=== PATIENT | female | born 1975 | race Caucasian/White ===

== ENCOUNTER 2017-06-19 15:58 | Emergency (ER) | payer OTHER ==
[~2017-06-19] VITALS: Ht 165.1 cm; Wt 79.8 kg
[~2017-06-19 15:58] MED LIST: ACETAMINOPHEN-H1 TA2 PO; ASPIRIN325 MG PO; BIRTH CONTROL1 EAC1 PO; CEPHALEXIN500 M1 PO; CIPROFLOXACIN500 M4 PO; CYMBALTA60 MG R; FIORICET 325 MG1 TAB PO; Motrin,Rufen800 MG PO; PRAVACHOL20 MG PO; PREDNISONE50 MG PO; TRAZODONE50 MG PO; VITAMINS FOR HA1 CAP PO
[2017-06-19] MEDS ORDERED: SEPTDS PO (16:19)
== END 2017-06-19 16:31 | disposition home or self-care (01) ==
LOC: ED 15:58
DX: L02.413 Cutaneous abscess of right upper limb (principal); Z90.89 Acquired absence of other organs; Z79.899 Other long term (current) drug therapy; Z79.82 Long term (current) use of aspirin; Z88.0 Allergy status to penicillin; Z88.1 Allergy status to other antibiotic agents

== ENCOUNTER 2017-08-08 07:14 | Emergency (ER) | payer OTHER ==
[~2017-08-08] VITALS: Ht 165.1 cm; Wt 83.9 kg
[~2017-08-08 07:14] MED LIST changes: +SEPTDS PO
[2017-08-08 07:57] LABS: BASO % 0.4 % (0.0-1.0); EOS # 0.3 10*3/uL (0.0-0.4); EOS % 4.4 % (1.0-4.0); HEMATOCRIT 43.7 % (37.0-47.0); HEMOGLOBIN 14.8 g/dl (12.0-16.0); LYMPH # 2.1 10*3/uL (1.3-4.4); LYMPH % 26.7 % (27.0-41.0); MEAN CELL VOLUME 89.9 fl (81.0-99.0); MEAN CORPUSCULAR HGB 30.5 pg (27.0-31.0); MEAN CORPUSCULAR HGB CONC 33.9 g/dl (33.0-37.0); MEAN PLATELET VOLUME 8.8 fl (9.6-12.3); MONO # 0.6 10*3/uL (0.1-1.0); MONO % 7.4 % (3.0-9.0); NEUT # 4.7 10*3/uL (2.3-7.9); NEUT % 60.7 % (47.0-73.0); PLATELET COUNT AUTOMATED 280 10*3/uL (130-400); RED BLOOD COUNT 4.86 10*6/uL (4.10-5.10); RED CELL DISTRI WIDTH 12.8 % (0-14.5); WHITE BLOOD COUNT 7.7 10*3/uL (4.8-10.8)
[2017-08-08 08:28] LABS: ALBUMIN 3.8 gm/dl (3.1-4.5); ALKALINE PHOSPHATASE 73 U/L (45-117); BUN 10 mg/dl (7-24); CHLORIDE 107 mmol/L (98-107); CREATININE 0.84 mg/dL (0.55-1.02); POTASSIUM 4.3 mmol/L (3.5-5.1); SGOT/AST 14 IU/L (3-35); SGPT/ALT 23 U/L (12-78); SODIUM 141 mmol/L (136-145); TOTAL PROTEIN 6.7 gm/dL (6.4-8.2)
== END 2017-08-08 10:09 | disposition home or self-care (01) ==
LOC: ED 07:14
PROVIDERS: Internal Medicine
DX: B34.9 Viral infection, unspecified (principal); F32.9 Major depressive disorder, single episode, unspecified; N80.9 Endometriosis, unspecified; G47.00 Insomnia, unspecified; G43.909 Migraine, unspecified, not intractable, without status migrainosus; E44.0 Moderate protein-calorie malnutrition; M79.605 Pain in left leg; M79.604 Pain in right leg; G89.29 Other chronic pain; F17.200 Nicotine dependence, unspecified, uncomplicated; F10.10 Alcohol abuse, uncomplicated; Z90.89 Acquired absence of other organs; Z88.0 Allergy status to penicillin; Z88.1 Allergy status to other antibiotic agents; Z79.82 Long term (current) use of aspirin; Z79.899 Other long term (current) drug therapy

== ENCOUNTER 2017-12-05 08:21 | Inpatient (IN) | payer OTHER ==
[~2017-12-05] VITALS: Ht 165.1 cm; Wt 85.8 kg
[2017-12-05] VITALS (9 sets, daily range): BP systolic 100–202; BP diastolic 60–85
--- NOTE | ~2017-12-05 | WRIGHTHP ---
[place], [place] PATIENT HISTORY AND PHYSICAL EXAM NAME: DANIELLE RINALDI LOCATED WITHIN [facility] #: [id number] UNIT #: [id number] ROOM: 422 DOCTOR: CHIQUITA GREENBERG MD BIRTHDATE: [birth year] DOS: 12/05/2017 HISTORY OF PRESENT ILLNESS: The patient is a 42-year-old female with a past medical history of: 1. Generalized anxiety disorder. 2. Major depression, recurrent, moderate. 3. Possible pancreatitis in the past. 4. History of endometriosis. 5. History of right occipital ischemic infarct in 2009. 6. Insomnia. 7. History of tonsillectomy and adenoidectomy. The patient presented to the emergency department at [facility] with complaints of epigastric abdominal pains and some nausea without vomiting for about 10 days. The pains were off and on and also she felt some pain in the back and they were getting worse over a period of time. The patient says the pain feel better after eating. She has had no vomiting, no diarrhea or constipation. No fever or chills. REVIEW OF SYSTEMS: LUNGS: No increasing shortness of breath or wheezing. GASTROINTESTINAL: The patient with nausea and abdominal pains. CARDIOVASCULAR: No chest pains or palpitations. FAMILY HISTORY: Noncontributory. SOCIAL HISTORY: Denies smoking cigarettes, alcohol and drug abuse. FAMILY HISTORY: Noncontributory. MEDICATIONS: Levothyroxine, Cymbalta, simvastatin, trazodone. PHYSICAL EXAMINATION: GENERAL: Alert, oriented times 3, in no visible distress. HEENT AND NECK: Extraocular movements are intact. Sclerae are anicteric. Oral mucosa is moist and clean. No obvious facial weakness. Neck is supple without any lymphadenopathy. No thyromegaly. No JVD. No carotid arterial bruits. LUNGS: Clear to auscultation. No wheezing. No rhonchi. CARDIOVASCULAR SYSTEM: Heart rate is regular in rate and rhythm. S1 and S2 normally audible. No significant murmur or any other abnormal cardiac sounds. ABDOMEN: Epigastric tenderness, no rigidity, guarding or rebound tenderness. The patient also has a small umbilical hernia. EXTREMITIES: Without significant cyanosis or edema. Warm to touch. CENTRAL NERVOUS SYSTEM: Alert and oriented x 3. Cranial nerves II-XII are intact. Speech is normal. The patient is able to move all extremities. Normal muscle strength. Deep tendon reflexes are equal on both sides. Plantars were downgoing. LABORATORY DATA: Normal serum electrolytes, bilirubin, liver enzymes. Negative test. No leukocytosis. Normal CBC. CT of the abdomen and pelvis [place], [place] PATIENT HISTORY AND PHYSICAL EXAM NAME: DANIELLE RINALDI UNIT #: [id number] ROOM: [facility] DOCTOR: CHIQUITA GREENBERG MD BIRTHDATE: [birth year] showing a 1.3 cm lesion in the inferior left kidney and the MRI was recommended to rule out small renal cell carcinoma. Lipase was normal. IMPRESSION: The patient has epigastric pain, improved with eating. The patient has been treated with IV Protonix and a consult has been obtained with Dr. Hernández who plans to perform an EGD for further evaluation. 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 Hernández. Case discussed with ____. Dr. Hernández to order an MRI of the lesion for further evaluation. Mixed hyperlipidemia treated with simvastatin. Pancreatic enzymes, lipase was normal. Chronic primary insomnia, treated with trazodone. Major depression, recurrent, moderate, treated with Cymbalta. Hypothyroidism, treated with levothyroxine. CHIQUITA GREENBERG MD CM:HISPHYS:PATIENT HISTORY AND PHYSICAL EXAMINATION 46 22 CHIQUITA GREENBERG MD 12/05/171942 interface
--- NOTE | ~2017-12-05 | PR ---
[place], [place] PROGRESS NOTE NAME: DANIELLE RINALDI UNIT #: [id number] ROOM: 422 DOCTOR: CHIQUITA GREENBERG MD BIRTHDATE: [birth year] DOS: 12/06/2017 SUBJECTIVE: The patient's stomach pains and difficulty with tolerating food, has undergone EGD by Dr. Hernández, showing stomach ulcers. OBJECTIVE: VITAL SIGNS: Blood pressure 108/56, heart rate 78 beats per minute, breathing 18 times per minute, temperature 98.2 degrees Fahrenheit. GENERAL APPEARANCE: The patient is alert and oriented x 3, in no visible distress. HEENT AND NECK: Exam within normal limits. CARDIOVASCULAR SYSTEM: Heart rate is regular in rate and rhythm. S1 and S2 normally audible. LUNGS: Clear to auscultation. ABDOMEN: Soft, nontender. No obvious organomegaly. Bowel sounds are present. EXTREMITIES: Without significant cyanosis or edema. IMPRESSION: 1. The patient with stomach ulcers, pain and nausea. The patient is currently being treated with Protonix intravenously 40 mg twice a day and patient asked to convert her aspirin into ____ coated aspirin, which she takes for coagulopathy. 2. Generalized anxiety disorder, treated and controlled. 3. Major depression, recurrent, moderate, treated with Cymbalta. 4. Chronic primary insomnia, treated with trazodone. 5. Mixed hyperlipidemia, treated with simvastatin. 6. Hypothyroidism, treated with levothyroxine. CHIQUITA GREENBERG MD CM:PNTRANS 27 20 CHIQUITA GREENBERG MD 12/06/171920 interface
--- NOTE | ~2017-12-05 | DS ---
[place], [place] DISCHARGE SUMMARY NAME: DANIELLE RINALDI UNIT #: [id number] ROOM: 422 DOCTOR: CHIQUITA GREENBERG MD BIRTHDATE: [birth year] DOS: 12/07/2017 DISCHARGE DIAGNOSES: 1. The patient with suspected Helicobacter pylori infection. 2. Stomach ulcers. 3. Generalized anxiety disorder. 4. Major depression, recurrent, moderate. 5. Chronic primary insomnia. 6. Mixed hyperlipidemia. 7. Hypothyroidism. 8. History of right occipital ischemic infarct in 2010 from coagulopathy. The patient takes aspirin. 9. Previous history of endometriosis. 10. History of tonsillectomy and adenoidectomy. 11. Chronic primary insomnia. HOSPITAL COURSE: The patient presented to the Emergency Department with recurrent nausea and being unable to eat with significant epigastric pains. The patient underwent EGD and she was found to have stomach ulcers and suspected to have H. pylori by Dr. Hernández and he suggested H. pylori treatment. The patient is eating better and she is able to tolerate food now for the first time today and she will be discharged to home to follow up as an outpatient with her PCP, Dr. Leyv Thakur, and she will also follow up with Dr. Hernández. Hypothyroidism. The patient maintained on levothyroxine. Major depression, recurrent, moderate, treated with Cymbalta. Chronic primary insomnia, treated with trazodone. Mixed hyperlipidemia, treated with simvastatin. [place], [place] DISCHARGE SUMMARY NAME: DANIELLE RINALDI UNIT #: [id number] ROOM: 422 DOCTOR: CHIQUITA GREENBERG MD BIRTHDATE: [birth year] CHIQUITA GREENBERG MD CM:DISCHARG [id number] CHIQUITA GREENBERG MD 12/07/17 1524 interface
[2017-12-05] MEDS ORDERED: SYNTHROID25 MCG PO (08:31)
[2017-12-05 09:03] LABS: BASO % 0.5 % (0.0-1.0); EOS # 0.3 10*3/uL (0.0-0.4); EOS % 4.5 % (1.0-4.0); HEMATOCRIT 42.7 % (37.0-47.0); HEMOGLOBIN 14.6 g/dl (12.0-16.0); LYMPH # 1.4 10*3/uL (1.3-4.4); LYMPH % 24.7 % (27.0-41.0); MEAN CELL VOLUME 89.1 fl (81.0-99.0); MEAN CORPUSCULAR HGB 30.5 pg (27.0-31.0); MEAN CORPUSCULAR HGB CONC 34.2 g/dl (33.0-37.0); MEAN PLATELET VOLUME 8.7 fl (9.6-12.3); MONO # 0.5 10*3/uL (0.1-1.0); MONO % 8.5 % (3.0-9.0); NEUT # 3.4 10*3/uL (2.3-7.9); NEUT % 61.6 % (47.0-73.0); PLATELET COUNT AUTOMATED 265 10*3/uL (130-400); RED BLOOD COUNT 4.79 10*6/uL (4.10-5.10); RED CELL DISTRI WIDTH 12.4 % (0-14.5); WHITE BLOOD COUNT 5.5 10*3/uL (4.8-10.8)
[2017-12-05 09:08] LABS: BILIRUBIN NEGATIVE (NEGATIVE); BLOOD TRACE-INTACT (NEGATIVE); CLARITY SL CLOUDY (CLEAR); COLOR YELLOW (YELLOW); GLUCOSE NEGATIVE (NEGATIVE); KETONE NEGATIVE (NEGATIVE); LEUKO ESTERASE 1+ (NEGATIVE); NITRITE NEGATIVE (NEGATIVE); PH 5.5 (5.0-9.0); SPECIFIC GRAVITY >= 1.030 (1.005-1.030); UROBILINOGEN 0.2 E.U./dl (0.2-1.0)
[2017-12-05 09:17] LABS: BACTERIA 1+; EPITHELIAL CELLS 15-20; MUCOUS TRACE
[2017-12-05 09:19] LABS: ALBUMIN 3.7 gm/dl (3.1-4.5); ALKALINE PHOSPHATASE 68 U/L (45-117); BUN 15 mg/dl (7-24); CHLORIDE 109 mmol/L (98-107); CREATININE 0.89 mg/dL (0.55-1.02); LIPASE 117 U/L (73-393); POTASSIUM 4.1 mmol/L (3.5-5.1); SGOT/AST 11 IU/L (3-35); SGPT/ALT 22 U/L (12-78); SODIUM 142 mmol/L (136-145); TOTAL PROTEIN 6.8 gm/dL (6.4-8.2)
[2017-12-05 09:20] LABS: BETA-HCG, QUANT < 1.0 mIU/mL (1-3)
[2017-12-06] VITALS (8 sets, daily range): BP systolic 94–108; BP diastolic 55–70
[2017-12-06 06:18] LABS: BASO % 0.5 % (0.0-1.0); EOS # 0.3 10*3/uL (0.0-0.4); EOS % 4.5 % (1.0-4.0); HEMATOCRIT 38.8 % (37.0-47.0); HEMOGLOBIN 13.4 g/dl (12.0-16.0); LYMPH # 1.9 10*3/uL (1.3-4.4); LYMPH % 33.1 % (27.0-41.0); MEAN CELL VOLUME 90.7 fl (81.0-99.0); MEAN CORPUSCULAR HGB 31.3 pg (27.0-31.0); MEAN CORPUSCULAR HGB CONC 34.5 g/dl (33.0-37.0); MEAN PLATELET VOLUME 9.1 fl (9.6-12.3); MONO # 0.5 10*3/uL (0.1-1.0); MONO % 8.6 % (3.0-9.0); NEUT # 3.1 10*3/uL (2.3-7.9); NEUT % 53.1 % (47.0-73.0); PLATELET COUNT AUTOMATED 241 10*3/uL (130-400); RED BLOOD COUNT 4.28 10*6/uL (4.10-5.10); RED CELL DISTRI WIDTH 12.7 % (0-14.5); WHITE BLOOD COUNT 5.8 10*3/uL (4.8-10.8)
[2017-12-06 06:24] LABS: BUN 13 mg/dl (7-24); CHLORIDE 110 mmol/L (98-107); CREATININE 0.88 mg/dL (0.55-1.02); POTASSIUM 3.8 mmol/L (3.5-5.1); SODIUM 144 mmol/L (136-145)
[2017-12-07 00:47] VITALS: BP 95/56
[2017-12-07 08:00] VITALS: BP 109/65
[2017-12-07 12:00] VITALS: BP 104/68
[2017-12-07] MEDS ORDERED: PROTONIX40 M1 PO (13:53)
[2017-12-07] MEDS ORDERED: METRONIDAZOLE500 M1 PO (13:53)
[2017-12-07] MEDS ORDERED: Clarithromycin250 MG PO (13:53)
[2017-12-07] MEDS ORDERED: PEPTO BISMOL C262 MG PO (13:53)
== END 2017-12-07 14:06 | disposition home or self-care (01) | DRG 394 ==
LOC: ED 08:21 → 4E 13:04 → EDHOLD 13:04 → 4E 13:12
PROVIDERS: Emergency Medicine; Internal Medicine
PROC: 0DB78ZX Excision of Stomach, Pylorus, Via Natural or Artificial Opening Endoscopic, Diagnostic (ICD-10-PCS; principal; 2017-12-06)
DX: K42.9 Umbilical hernia without obstruction or gangrene (principal); K25.3 Acute gastric ulcer without hemorrhage or perforation; F33.1 Major depressive disorder, recurrent, moderate; N28.1 Cyst of kidney, acquired; K21.9 Gastro-esophageal reflux disease without esophagitis; K29.70 Gastritis, unspecified, without bleeding; F41.1 Generalized anxiety disorder; E78.2 Mixed hyperlipidemia; G47.00 Insomnia, unspecified; E03.9 Hypothyroidism, unspecified; B96.81 Helicobacter pylori [H. pylori] as the cause of diseases classified elsewhere; Z79.899 Other long term (current) drug therapy

== ENCOUNTER → 2018-03-04 | Outpatient (CLI) | payer OTHER ==
[~2018-03-04] MED LIST changes: +Clarithromycin250 MG PO; +DICYCLOMINE HCL10 MG PO; +METRONIDAZOLE500 M1 PO; +PEPTO BISMOL C262 MG PO; +PROTONIX40 M1 PO; +SYNTHROID25 MCG PO
[2018-03-04 09:58] LABS: HEMATOCRIT 44.5 % (37.0-47.0); HEMOGLOBIN 14.6 g/dl (12.0-16.0); MEAN CELL VOLUME 93.5 fl (81.0-99.0); MEAN CORPUSCULAR HGB 30.7 pg (27.0-31.0); MEAN CORPUSCULAR HGB CONC 32.8 g/dl (33.0-37.0); RED BLOOD COUNT 4.76 10*6/uL (4.10-5.10); RED CELL DISTRI WIDTH 12.7 % (0-14.5); WHITE BLOOD COUNT 5.2 10*3/uL (4.8-10.8)
[2018-03-04 10:26] LABS: CHLORIDE 109 mmol/L (98-107); POTASSIUM 3.6 mmol/L (3.5-5.1); SODIUM 144 mmol/L (136-145)
[2018-03-04 10:33] LABS: ALBUMIN 3.7 gm/dl (3.1-4.5); ALKALINE PHOSPHATASE 69 U/L (45-117); BUN 6 mg/dl (7-24); CHOLESTEROL 167 mg/dL (<200); CREATININE 0.94 mg/dL (0.55-1.02); FREE T4 0.57 ng/dl (0.76-1.46); HDL CHOLESTEROL 37 mg/dl (40-60); LDL CHOLESTEROL 104 mg/dL (9-159); SGOT/AST 11 IU/L (3-35); SGPT/ALT 22 U/L (12-78); TOTAL PROTEIN 7.1 gm/dL (6.4-8.2); TRIGLYCERIDES 131 mg/dl (<150); VLDL CHOLESTEROL 26 mg/dL (6-40)
== END | disposition home or self-care (01) ==
LOC: LAB 09:32 → US 10:00
PROVIDERS: Family Medicine
DX: E78.00 Pure hypercholesterolemia, unspecified (principal); E03.9 Hypothyroidism, unspecified; E55.9 Vitamin D deficiency, unspecified; F41.1 Generalized anxiety disorder; E74.09 Other glycogen storage disease; R10.11 Right upper quadrant pain

== ENCOUNTER 2018-03-14 19:05 | Emergency (ER) | payer OTHER ==
[~2018-03-14] VITALS: Ht 165.1 cm; Wt 81.6 kg
[~2018-03-14 19:05] MED LIST changes: -DICYCLOMINE HCL10 MG PO
[2018-03-14 19:41] LABS: BASO % 0.4 % (0.0-1.0); EOS # 0.2 10*3/uL (0.0-0.4); EOS % 3.1 % (1.0-4.0); HEMOGLOBIN 14.9 g/dl (12.0-16.0); LYMPH # 2.5 10*3/uL (1.3-4.4); LYMPH % 33.3 % (27.0-41.0); MEAN CELL VOLUME 91.1 fl (81.0-99.0); MEAN CORPUSCULAR HGB 30.2 pg (27.0-31.0); MEAN CORPUSCULAR HGB CONC 33.1 g/dl (33.0-37.0); MEAN PLATELET VOLUME 8.6 fl (9.6-12.3); MONO # 0.5 10*3/uL (0.1-1.0); MONO % 6.6 % (3.0-9.0); NEUT # 4.3 10*3/uL (2.3-7.9); NEUT % 56.5 % (47.0-73.0); PLATELET COUNT AUTOMATED 246 10*3/uL (130-400); RED BLOOD COUNT 4.94 10*6/uL (4.10-5.10); RED CELL DISTRI WIDTH 12.6 % (0-14.5); WHITE BLOOD COUNT 7.5 10*3/uL (4.8-10.8)
[2018-03-14 19:56] LABS: BILIRUBIN NEGATIVE (NEGATIVE); BLOOD NEGATIVE (NEGATIVE); CLARITY SL CLOUDY (CLEAR); COLOR YELLOW (YELLOW); GLUCOSE NEGATIVE (NEGATIVE); KETONE NEGATIVE (NEGATIVE); LEUKO ESTERASE TRACE (NEGATIVE); NITRITE NEGATIVE (NEGATIVE); SPECIFIC GRAVITY >= 1.030 (1.005-1.030)
[2018-03-14 19:57] LABS: ALBUMIN 4.1 gm/dl (3.1-4.5); ALKALINE PHOSPHATASE 69 U/L (45-117); BUN 8 mg/dl (7-24); CHLORIDE 110 mmol/L (98-107); CREATININE 0.91 mg/dL (0.55-1.02); LIPASE 114 U/L (73-393); POTASSIUM 3.2 mmol/L (3.5-5.1); SGOT/AST 14 IU/L (3-35); SGPT/ALT 24 U/L (12-78); SODIUM 146 mmol/L (136-145); TOTAL PROTEIN 7.8 gm/dL (6.4-8.2)
[2018-03-14 20:04] LABS: BACTERIA 1+; EPITHELIAL CELLS 21-30
[2018-03-14] MEDS ORDERED: DICYCLOMINE HCL10 MG PO (21:02)
== END 2018-03-14 21:20 | disposition home or self-care (01) ==
LOC: ED 19:05
PROVIDERS: Physician Assistant
DX: K80.50 Calculus of bile duct without cholangitis or cholecystitis without obstruction (principal); R10.11 Right upper quadrant pain; Z88.0 Allergy status to penicillin; Z88.1 Allergy status to other antibiotic agents; Z98.51 Tubal ligation status; Z90.49 Acquired absence of other specified parts of digestive tract; Z79.82 Long term (current) use of aspirin; Z79.899 Other long term (current) drug therapy

== ENCOUNTER → 2018-03-20 | Outpatient (CLI) | payer OTHER ==
[~2018-03-20] MED LIST changes: +DICYCLOMINE HCL10 MG PO
== END | disposition home or self-care (01) ==
LOC: NM 07:00
DX: K80.80 Other cholelithiasis without obstruction (principal); K21.9 Gastro-esophageal reflux disease without esophagitis

== ENCOUNTER 2019-03-18 08:16 | Emergency (ER) | payer OTHER ==
[~2019-03-18] VITALS: Ht 165.1 cm; Wt 72.6 kg
[2019-03-18] MEDS ORDERED: MEDROL DOSEPAK4 MG PO (10:45)
[2019-03-18] MEDS ORDERED: CYCLOBENZAPRINE5 M3 PO (10:45)
[2019-03-18] MEDS ORDERED: KETOROLAC10 MG PO (10:45)
== END 2019-03-18 10:48 | disposition home or self-care (01) ==
LOC: ED 08:16
DX: M54.5 Low back pain (principal); G89.29 Other chronic pain; Z88.0 Allergy status to penicillin; Z88.1 Allergy status to other antibiotic agents